=== PATIENT | female | born 2000 | race Hispanic/Latino ===

== ENCOUNTER → 2020-06-29 | Outpatient (CLI) | payer BC ==
--- NOTE | 2020-06-29 09:53 | Diagnostic Imaging Report ---
EXAM: US ABDOMEN COMPLETE DATE: 06/29/2020 8:58 AM INDICATION: Elevated LFTs COMPARISON: None FINDINGS: The visualized pancreas is present unremarkable. The liver is normal in size measuring 15.0 cm in length. Hepatic echogenicity is within normal limits. No focal hepatic abdomen is identified. The main portal vein is patent with antegrade flow and diameter of 1.0 cm, within normal limits. The gallbladder is unremarkable. There is no evidence of cholelithiasis, gallbladder wall thickening, or pericholecystic fluid. There is no intra or extra hepatic biliary ductal dilatation. The common bile duct measures 2 mm. Sonographic Fraser sign is negative. The spleen measures 13.0 cm in length and an demonstrates unremarkable sonographic appearance. The kidneys are normal in size measuring 11.0 cm in length on the right and 12.0 cm in length on the left. Cortical thickness and echogenicity is within normal limits. There is no evidence for solid renal mass, hydronephrosis, or shadowing calculi. The visualized portions of the IVC and aorta are within normal limits. There is no ascites present. IMPRESSION: Unremarkable abdominal ultrasound examination. Signed by: Dr. Seb Manzanares MD on 06/29/2020 9:50 AM
== END ==
LOC: US 08:34
PROVIDERS: ATTEND Internal Medicine
DX: R74.8 Abnormal levels of other serum enzymes (principal)
CPT/HCPCS: 76700